=== PATIENT | male | born 1955 | race Caucasian/White ===

== ENCOUNTER 2019-10-29 14:12 | Inpatient (IN) | payer MEDICARE ==
[~2019-10-29] VITALS: Ht 170.2 cm; Wt 73.2 kg
[2019-10-29 14:47] LABS: BASOPHILS % (AUTO) 0.2 % (0.0-5.0); EOSINOPHILS % (AUTO) 0.1 % (0.0-8.0); HEMATOCRIT 44.3 % (42-54); MEAN CORPUSCULAR HEMOGLOBIN 31.1 pg (27.0-33.0); MEAN CORPUSCULAR HGB CONC 35.2 g/dL (32.0-36.0); MEAN CORPUSCULAR VOLUME 88.4 fL (79-99); MONOCYTES % (AUTO) 2.7 % (3.0-13.0); NEUTROPHILS % (AUTO) 95.7 % (40.0-77.0); PLATELET COUNT (AUTO) 366 K/uL (130-400); RED BLOOD CELL COUNT(AUTO) 5.01 MIL/uL (4.50-6.20); WHITE BLOOD COUNT (AUTO) 17.3 K/uL (4.8-10.8)
[2019-10-29 14:58] LABS: POTASSIUM 3.3 mmol/L (3.5-5.1)
[2019-10-29 15:09] LABS: BILIRUBIN,TOTAL 1.8 mg/dL (0.2-1.0); TOTAL PROTEIN, SERUM 8.6 g/dL (6.0-8.3)
[2019-10-29] MEDS ORDERED: ONDANSETRON HCL 4 MG/2 ML VIAL ONE ×2 (15:13→15:33)
[2019-10-29] MEDS ORDERED: MORPHINE SULFATE 4 MG/1ML SYG ONE ×2 (15:14→15:33)
[2019-10-29] MEDS ORDERED: SODIUM CHLORIDE 0.9% 1000ML 1,000 ML IV ONE ×2 (15:14→17:56)
[2019-10-29 16:14] LABS: BILIRUBIN,URINE Negative (NEGATIVE); COLOR,URINE Yellow (YELLOW); GLUCOSE, URINE (UA) Negative (NEGATIVE); KETONES,URINE Negative (NEGATIVE); LEUKOCYTE ESTERASE ,URINE Negative (NEGATIVE); NITRATE,URINE Negative (NEGATIVE); OCCULT BLOOD,URINE Negative (NEGATIVE); PH,URINE >=9.0 (5.0-8.0); PROTEIN,URINE Negative (NEGATIVE)
[2019-10-29 16:16] LABS: APPEARANCE,URINE SLIGHTLY CLOUDY (CLEAR)
[2019-10-29 16:37] LABS: AMORPHOUS SEDIMENT,UR Few /LPF (None Seen); BACTERIA,URINE None Seen /HPF (None Seen); RBC,URINE None Seen /HPF (0-1); SQUAMOUS EPITHELIAL CELL,UR Rare /HPF (0-2); WBC,URINE None Seen /HPF (0-1)
[2019-10-29] MEDS ORDERED: METRONIDAZOLE 500MG/100ML BAG 100 ML ONE (16:42)
[2019-10-29 17:46] LABS: ABG BASE EXCESS -3.4 mmol/L (-2.0-3.0); ABG OXYGEN SATURATION 99.2 % (95.0-99.0); ABG PCO2 19 mmHg (35-48)
[2019-10-29] MEDS: SODIUM CHLORIDE 0.9% 1000ML 1,000 ML IV SCH (17:48)
[2019-10-29] MEDS ORDERED: LEVOFLOXACIN 750 MG/D5W 150 ML 150 ML ONE (17:57)
[2019-10-29] MEDS ORDERED: LACTULOSE 20 GM/30 ML UDCUP PO PRN (18:00)
[2019-10-29] MEDS ORDERED: GUAIFENESIN-DM 200/20 MG 10 ML PO PRN (18:00)
[2019-10-29] MEDS ORDERED: MORPHINE SULFATE 2 MG/ML 1ML SYG IV PRN (18:00)
[2019-10-29] MEDS: METRONIDAZOLE 500MG/100ML BAG 100 ML IV SCH (18:00)
[2019-10-29] MEDS ORDERED: ONDANSETRON HCL 4 MG/2 ML VIAL IV PRN (18:00)
[2019-10-29 18:26] LABS: HEMOGLOBIN A1C 5.5 % (4.0-6.0)
[2019-10-29] MEDS ORDERED: GADODIAMIDE 10 MMOL/20 ML VIAL IV ONE (18:48)
[2019-10-29] MEDS: ZOSYN 3.375GM+NS 50ML 50 ML IV SCH (21:00)
[2019-10-29 21:34] VITALS: BP 151/85
[2019-10-29] MEDS: FAMOTIDINE/PF 20 MG/2 ML VIAL IV SCH (22:16)
[2019-10-29 23:10] VITALS: BP 154/94
[2019-10-30] MEDS: ACETAMINOPHEN 325 MG TAB PO PRN ×2 (00:09→07:58)
[2019-10-30] MEDS: SODIUM CHLORIDE 0.9% 1000ML 1,000 ML IV SCH ×3 (03:18→23:51)
[2019-10-30] MEDS: METRONIDAZOLE 500MG/100ML BAG 100 ML IV SCH ×2 (03:18→10:07)
[2019-10-30 03:40] VITALS: BP 168/96
[2019-10-30] MEDS: ZOSYN 3.375GM+NS 50ML 50 ML IV SCH ×3 (05:00→20:31)
[2019-10-30 06:50] LABS: BASOPHILS % (AUTO) 0.2 % (0.0-5.0); EOSINOPHILS % (AUTO) 0.6 % (0.0-8.0); HEMATOCRIT 41.8 % (42-54); LYMPHOCYTES % (AUTO) 1.7 % (21.0-51.0); MEAN CORPUSCULAR HEMOGLOBIN 29.5 pg (27.0-33.0); MEAN CORPUSCULAR HGB CONC 33.5 g/dL (32.0-36.0); NEUTROPHILS % (AUTO) 90.9 % (40.0-77.0); PLATELET COUNT (AUTO) 318 K/uL (130-400); RED BLOOD CELL COUNT(AUTO) 4.75 MIL/uL (4.50-6.20); RED CELL DISTRIBUTION WIDTH 14.3 % (11.0-15.5); WHITE BLOOD COUNT (AUTO) 17.8 K/uL (4.8-10.8)
[2019-10-30 07:10] LABS: ALBUMIN 3.1 g/dL (3.5-5.0); BILIRUBIN,TOTAL 3.6 mg/dL (0.2-1.0); POTASSIUM 4.1 mmol/L (3.5-5.1); TOTAL PROTEIN, SERUM 7.4 g/dL (6.0-8.3)
[2019-10-30 07:30] VITALS: BP 155/98
[2019-10-30 07:43] LABS: CRP QUANTITATIVE 150.4 mg/L (0.00-9.0)
[2019-10-30] MEDS: FAMOTIDINE/PF 20 MG/2 ML VIAL IV SCH ×2 (07:58→20:31)
[2019-10-30] MEDS: ENOXAPARIN SODIUM 30 MG/0.3 ML SQ SCH (07:59)
[2019-10-30] MEDS ORDERED: MIRT7.5T11 PO (08:32)
[2019-10-30] MEDS ORDERED: OMEP20CA12 PO (08:32)
[2019-10-30] MEDS ORDERED: PALI819S IM (08:32)
[2019-10-30] MEDS ORDERED: FLUO20CA30 PO (08:32)
[2019-10-30] MEDS ORDERED: BENZ0.5T43 PO (08:32)
[2019-10-30 11:30] VITALS: BP 134/70
--- NOTE | 2019-10-30 14:20 | NUR ---
DR. MERISSA CRAVEN AT BEDSIDE,STATED TO NOTIFY HER ONCE ERCP IS COMPLETED.
--- NOTE | 2019-10-30 15:24 | NUR ---
1330 BELONGING 1 PHONE CHARGE DELIVERED TO HIM AND 1 HOUSE NICHOLSON ON A BLUE STRING REMOVED FROM HIS BELONGINGS AND TURN IN TO [facility] HIS PASTORS PER HIS APPROVAL BY Millie MEZA RN HS
[2019-10-30 15:30] VITALS: BP 161/95
--- NOTE | 2019-10-30 16:18 | NUR ---
CM NOTE cm attempted phone call to patient's room. No answer. CM then attempted call to patient's cell number [phone]. No answer, unable to leave message. CM left phone number with nurse for patient to call CM back. CM to f/u.
[2019-10-30 19:40] VITALS: BP 145/86
[2019-10-30] MEDS ORDERED: ACETAMINOPHEN 325 MG TAB PO PRN (20:45)
[2019-10-30 23:39] VITALS: BP 156/95
[2019-10-31 03:35] VITALS: BP 150/95
[2019-10-31] MEDS: ZOSYN 3.375GM+NS 50ML 50 ML IV SCH ×3 (04:16→19:30)
[2019-10-31 05:52] LABS: HEMATOCRIT 38.4 % (42-54); MEAN CORPUSCULAR HEMOGLOBIN 31.2 pg (27.0-33.0); MEAN CORPUSCULAR HGB CONC 35.9 g/dL (32.0-36.0); MEAN CORPUSCULAR VOLUME 86.7 fL (79-99); PLATELET COUNT (AUTO) 277 K/uL (130-400); RED BLOOD CELL COUNT(AUTO) 4.43 MIL/uL (4.50-6.20); RED CELL DISTRIBUTION WIDTH 14.1 % (11.0-15.5); WHITE BLOOD COUNT (AUTO) 13.1 K/uL (4.8-10.8)
[2019-10-31 06:20] LABS: ALBUMIN 2.8 g/dL (3.5-5.0); CREATININE 0.9 mg/dL (0.5-1.5); TOTAL PROTEIN, SERUM 6.9 g/dL (6.0-8.3)
[2019-10-31 06:28] LABS: POTASSIUM 2.6 mmol/L (3.5-5.1)
[2019-10-31] MEDS: LIDOCAINE HCL-MPF 1% 2ML VIAL IV PRN ×2 (06:33→19:32)
[2019-10-31] MEDS: POTASSIUM CHLORIDE 20MEQ/100ML 100 ML IV PRN ×4 (06:33→19:30)
[2019-10-31 07:00] VITALS: BP 174/109
[2019-10-31 07:19] LABS: BAND NEUTROPHILS % (MANUAL) 1 % (0-2); BASOPHILS % (MANUAL) 1 % (0-2); MAN.DIFF COMMENT-IMPRESSION MANUAL DIFFERENTIAL; MONOCYTES % (MANUAL) 6 % (2-9); PLATELET MORPHOLOGY COMMENT ADEQUATE; SEGMENTED NEUTROPHILS % 92 % (40-70)
[2019-10-31] MEDS: FAMOTIDINE/PF 20 MG/2 ML VIAL IV SCH ×2 (08:20→19:30)
[2019-10-31] MEDS: ENOXAPARIN SODIUM 30 MG/0.3 ML SQ SCH (08:20)
[2019-10-31] MEDS ORDERED: HYDROMORPHONE HCL 2 MG/ML VIAL IVP PRN ×2 (08:30)
[2019-10-31] MEDS ORDERED: HYDROMORPHONE 1 MG/1 ML AMP IVP PRN ×2 (08:45)
[2019-10-31] MEDS: POTASSIUM CHLORIDE 20 MEQ in SODIUM CHLORIDE 0.9% 1000ML 1,000 ML IV SCH ×2 (09:29→18:39)
[2019-10-31 11:00] VITALS: BP 142/92
--- NOTE | 2019-10-31 12:48 | NUR ---
CLAUDIA PLAN PATIENT IN COVID UNIT. SPOKE TO PATIENT DAUGHTER. SAID [facility]. PATIENT LIVES ALONE. INDEPENDENT ABLE TO PERFORM ADL'S. NO SERVICES OR DME'S. WANTS DAD TO COME FOR DUE TO COVID FEARS. Addendum: 10/31/19 at 1254 by PIOTR EGAN RN CM Amended: Links added.
[2019-10-31 14:44] LABS: CREATININE 0.8 mg/dL (0.5-1.5); POTASSIUM 3.2 mmol/L (3.5-5.1)
[2019-10-31 16:01] VITALS: BP 141/67
[2019-10-31 19:48] VITALS: BP 142/94
[2019-10-31 23:43] VITALS: BP 140/91
[2019-11-01] MEDS: ZOSYN 3.375GM+NS 50ML 50 ML IV SCH ×3 (03:05→20:22)
[2019-11-01] MEDS: POTASSIUM CHLORIDE 20 MEQ in SODIUM CHLORIDE 0.9% 1000ML 1,000 ML IV SCH ×2 (03:05→12:17)
[2019-11-01 03:52] VITALS: BP 153/96
[2019-11-01 05:37] LABS: BASOPHILS % (AUTO) 0.6 % (0.0-5.0); EOSINOPHILS % (AUTO) 4.8 % (0.0-8.0); HEMATOCRIT 35.4 % (42-54); MEAN CORPUSCULAR HEMOGLOBIN 30.5 pg (27.0-33.0); MEAN CORPUSCULAR HGB CONC 35.3 g/dL (32.0-36.0); MEAN CORPUSCULAR VOLUME 86.3 fL (79-99); MONOCYTES % (AUTO) 12.8 % (3.0-13.0); NEUTROPHILS % (AUTO) 71.3 % (40.0-77.0); PLATELET COUNT (AUTO) 222 K/uL (130-400); RED CELL DISTRIBUTION WIDTH 14.6 % (11.0-15.5); WHITE BLOOD COUNT (AUTO) 6.4 K/uL (4.8-10.8)
[2019-11-01 06:32] LABS: ALBUMIN 2.3 g/dL (3.5-5.0); CREATININE 0.9 mg/dL (0.5-1.5); MAGNESIUM 1.6 mg/dL (1.80-2.40); PHOSPHORUS 0.9 mg/dL (2.5-4.9); POTASSIUM 3.5 mmol/L (3.5-5.1)
[2019-11-01 07:00] VITALS: BP 151/104
[2019-11-01] MEDS: FAMOTIDINE/PF 20 MG/2 ML VIAL IV SCH ×2 (08:54→20:23)
[2019-11-01] MEDS: ENOXAPARIN SODIUM 30 MG/0.3 ML SQ SCH (08:55)
[2019-11-01 11:00] VITALS: BP 158/111
[2019-11-01] MEDS ORDERED: MAGNESIUM 4GM PREMIX 100ML 100 ML IV PRN (11:15)
[2019-11-01] MEDS ORDERED: KETOROLAC TROMETHAMINE 30MG/ML IV PRN (11:30)
[2019-11-01] MEDS: METOPROLOL TARTRATE 1 MG/ML 5ML VIAL IV SCH ×3 (12:11→20:24)
[2019-11-01] MEDS: NEUTRA-PHOS PACKET 1 EACH PO SCH ×3 (12:13→20:27)
[2019-11-01 16:00] VITALS: BP 151/101
[2019-11-01 20:59] VITALS: BP 148/101
[2019-11-02] VITALS (7 sets, daily range): BP systolic 142–175; BP diastolic 86–108
[2019-11-02] MEDS: POTASSIUM CHLORIDE 20 MEQ in SODIUM CHLORIDE 0.9% 1000ML 1,000 ML IV SCH ×3 (00:13→22:34)
--- NOTE | 2019-11-02 00:14 | NUR ---
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 informed of negative results. no new orders given.
[2019-11-02 04:44] LABS: BASOPHILS % (AUTO) 0.5 % (0.0-5.0); HEMATOCRIT 35.1 % (42-54); LYMPHOCYTES % (AUTO) 16.4 % (21.0-51.0); MEAN CORPUSCULAR HEMOGLOBIN 30.1 pg (27.0-33.0); MONOCYTES % (AUTO) 13.4 % (3.0-13.0); NEUTROPHILS % (AUTO) 60.2 % (40.0-77.0); PLATELET COUNT (AUTO) 261 K/uL (130-400); RED BLOOD CELL COUNT(AUTO) 4.08 MIL/uL (4.50-6.20); RED CELL DISTRIBUTION WIDTH 14.6 % (11.0-15.5); WHITE BLOOD COUNT (AUTO) 5.5 K/uL (4.8-10.8)
[2019-11-02 05:01] LABS: ALBUMIN 2.5 g/dL (3.5-5.0); BILIRUBIN,TOTAL 1.6 mg/dL (0.2-1.0); CREATININE 0.8 mg/dL (0.5-1.5); MAGNESIUM 2.4 mg/dL (1.80-2.40); PHOSPHORUS 1.9 mg/dL (2.5-4.9); POTASSIUM 3.2 mmol/L (3.5-5.1); TOTAL PROTEIN, SERUM 6.4 g/dL (6.0-8.3)
[2019-11-02] MEDS: ZOSYN 3.375GM+NS 50ML 50 ML IV SCH ×3 (05:43→21:03)
[2019-11-02] MEDS: METOPROLOL TARTRATE 1 MG/ML 5ML VIAL IV SCH ×4 (05:44→23:51)
--- NOTE | 2019-11-02 06:19 | NUR ---
MD UPDATE 0600: MD CHU CALLED UNIT. SPOKE WITH PRIMARY NURSE, SARIAH CASTRO RN. NURSE NOTIFIED MD OF MORNING LABS AND NEGATIVE COVID 19 TEST RESULTS. STATED NO PROCEDURE TO BE SCHEDULED UNTIL 2 NEGATIVE COVID19 TEST RESULTS. ORDERS CMP, PT-INR AND PTT FOR 11/03/19. ORDERS READ BACK AND ENTERED INTO SYSTEM.
[2019-11-02] MEDS: NEUTRA-PHOS PACKET 1 EACH PO SCH ×3 (08:37→17:37)
[2019-11-02] MEDS: FAMOTIDINE/PF 20 MG/2 ML VIAL IV SCH ×2 (08:37→21:03)
[2019-11-02] MEDS: ENOXAPARIN SODIUM 30 MG/0.3 ML SQ SCH (08:38)
--- NOTE | 2019-11-02 10:48 | NUR ---
DR. VLAD BOLAÑOS PENDING CALL BACK SPOKE WITH OFFICE STAFF.
--- NOTE | 2019-11-02 12:34 | NUR ---
UPDATED FAMILY CONTACTS CALL TO FRIEND GENE IN CHART- NUMBER OBTAINED FOR DAUGHTER SALLIE, CALLED AND UPDATED- STATES WILL BE ARRIVING TOMORROW- FACE SHEET UPDATED, DCP IS STILL HOME
[2019-11-02 14:53] LABS: INR 1.06 (0.85-1.15); PROTHROMBIN TIME 11.4 SEC (9.6-11.6)
--- NOTE | 2019-11-02 15:45 | NUR ---
PT TRANSFERRED TO 3RD FLOOR ROOM 312 REPORT GIVEN TO BRANDO SLATER. PT IN NO DISTRESS, NO SOB. 20G IV INTACT TO SUJEY AC.
--- NOTE | 2019-11-02 17:01 | NUR ---
DR CHU CALLED BACK. STATED THAT HE WILL SEE PATIENT LATER TODAY. HE'S DOING SX RIGHT NOW.
--- NOTE | 2019-11-02 17:02 | NUR ---
DR CHU, POSSIBLE ERCP TOMORROW. NO ORDERS YET. DR CHU WILL SEE PATIENT LATER TODAY.
[2019-11-02] MEDS: POTASSIUM CHLORIDE 20MEQ/100ML 100 ML IV PRN ×2 (21:03→23:53)
[2019-11-02] MEDS: LIDOCAINE HCL-MPF 1% 2ML VIAL IV PRN ×2 (21:03→23:52)
[2019-11-02] MEDS: BENZTROPINE MESYLATE 0.5 MG TAB PO SCH (21:04)
[2019-11-03] VITALS (27 sets, daily range): BP systolic 98–173; BP diastolic 66–115
[2019-11-03 03:56] LABS: HEMATOCRIT 37.1 % (42-54); MEAN CORPUSCULAR HEMOGLOBIN 30.4 pg (27.0-33.0); MEAN CORPUSCULAR HGB CONC 35.6 g/dL (32.0-36.0); MEAN CORPUSCULAR VOLUME 85.5 fL (79-99); PLATELET COUNT (AUTO) 263 K/uL (130-400); RED BLOOD CELL COUNT(AUTO) 4.34 MIL/uL (4.50-6.20); RED CELL DISTRIBUTION WIDTH 14.3 % (11.0-15.5); WHITE BLOOD COUNT (AUTO) 6.6 K/uL (4.8-10.8)
[2019-11-03 04:05] LABS: INR 1.06 (0.85-1.15); PARTIAL THROMBOPLASTIN TIME 30.3 SEC (26.3-35.5); PROTHROMBIN TIME 11.4 SEC (9.6-11.6)
[2019-11-03 04:24] LABS: ALBUMIN 2.7 g/dL (3.5-5.0); BILIRUBIN,TOTAL 1.5 mg/dL (0.2-1.0); CREATININE 0.8 mg/dL (0.5-1.5); PHOSPHORUS 2.3 mg/dL (2.5-4.9); POTASSIUM 3.9 mmol/L (3.5-5.1); TOTAL PROTEIN, SERUM 6.8 g/dL (6.0-8.3)
[2019-11-03 04:28] LABS: BAND NEUTROPHILS % (MANUAL) 1 % (0-2); EOSINOPHILS % (MANUAL) 3 % (1-6); LYMPHOCYTES % (MANUAL) 20 % (22-44); MAN.DIFF COMMENT-IMPRESSION MANUAL DIFFERENTIAL; MONOCYTES % (MANUAL) 10 % (2-9); SEGMENTED NEUTROPHILS % 66 % (40-70)
[2019-11-03 04:30] LABS: PLATELET MORPHOLOGY COMMENT ADEQUATE
[2019-11-03] MEDS: ZOSYN 3.375GM+NS 50ML 50 ML IV SCH ×3 (05:07→21:47)
[2019-11-03] MEDS: METOPROLOL TARTRATE 1 MG/ML 5ML VIAL IV SCH ×4 (05:29→21:47)
[2019-11-03] MEDS: POTASSIUM CHLORIDE 20 MEQ in SODIUM CHLORIDE 0.9% 1000ML 1,000 ML IV SCH ×2 (06:38→17:50)
[2019-11-03] MEDS: ENOXAPARIN SODIUM 30 MG/0.3 ML SQ SCH (09:00)
[2019-11-03] MEDS: BENZTROPINE MESYLATE 0.5 MG TAB PO SCH ×2 (10:48→21:47)
[2019-11-03] MEDS: FLUOXETINE HCL 20 MG CAPSULE PO SCH (10:49)
[2019-11-03] MEDS: MIRTAZAPINE 15 MG TABLET PO SCH (10:49)
[2019-11-03] MEDS: FAMOTIDINE/PF 20 MG/2 ML VIAL IV SCH ×2 (10:49→21:47)
[2019-11-03] MEDS ORDERED: IOHEXOL-350 50ML VIAL IV ONE (14:02)
[2019-11-03] MEDS ORDERED: PROPOFOL 10 MG/ML 20ML VIAL IV ONE ×2 (14:48→14:49)
[2019-11-03] MEDS ORDERED: SUCCINYLCHOLINE 200MG/10ML SYR ONE (14:49)
[2019-11-03] MEDS ORDERED: LIDOCAINE HCL 2% 20ML ONE (14:50)
[2019-11-03] MEDS: INDOMETHACIN 50 MG SUPP.RECT RC SCH (16:10)
--- NOTE | 2019-11-03 18:14 | NUR ---
PAGED DR. NELSON REGARDING ERCP RESULTS. PENDING CALL BACK
--- NOTE | 2019-11-03 18:19 | NUR ---
SPOKE TO DR. NELSON NEW ORDER OBTAIN CONSENT FOR LAP SHRUTI POSSIBLE OPEN FOR TOMORROW 12PM. PER DR. NELSON SHE ALREADY SPOKE TO PATIENT REGARDING SURGERY.
[2019-11-04] VITALS (24 sets, daily range): BP systolic 138–170; BP diastolic 72–99
[2019-11-04] MEDS: ZOSYN 3.375GM+NS 50ML 50 ML IV SCH ×4 (04:35→21:43)
[2019-11-04] MEDS: METOPROLOL TARTRATE 1 MG/ML 5ML VIAL IV SCH ×4 (04:35→23:35)
[2019-11-04 05:46] LABS: BASOPHILS % (AUTO) 0.7 % (0.0-5.0); EOSINOPHILS % (AUTO) 7.9 % (0.0-8.0); HEMATOCRIT 36.3 % (42-54); MEAN CORPUSCULAR HEMOGLOBIN 30.4 pg (27.0-33.0); MEAN CORPUSCULAR HGB CONC 33.9 g/dL (32.0-36.0); MEAN CORPUSCULAR VOLUME 89.6 fL (79-99); MONOCYTES % (AUTO) 12.8 % (3.0-13.0); NEUTROPHILS % (AUTO) 57.6 % (40.0-77.0); PLATELET COUNT (AUTO) 235 K/uL (130-400); RED BLOOD CELL COUNT(AUTO) 4.05 MIL/uL (4.50-6.20); RED CELL DISTRIBUTION WIDTH 14.8 % (11.0-15.5)
[2019-11-04 06:01] LABS: ALBUMIN 2.5 g/dL (3.5-5.0); BILIRUBIN,DIRECT 0.5 mg/dL (0.0-0.3); BILIRUBIN,TOTAL 1.3 mg/dL (0.2-1.0); CREATININE 0.7 mg/dL (0.5-1.5); POTASSIUM 4.7 mmol/L (3.5-5.1); TOTAL PROTEIN, SERUM 6.6 g/dL (6.0-8.3)
[2019-11-04] MEDS: BENZTROPINE MESYLATE 0.5 MG TAB PO SCH ×2 (09:00→21:42)
[2019-11-04] MEDS: ENOXAPARIN SODIUM 30 MG/0.3 ML SQ SCH (09:00)
[2019-11-04] MEDS: FLUOXETINE HCL 20 MG CAPSULE PO SCH (09:00)
[2019-11-04] MEDS: MIRTAZAPINE 15 MG TABLET PO SCH (09:00)
--- NOTE | 2019-11-04 09:41 | NUR ---
i assumed pt's care at 0900, when in went into room to introduce myself, pt was eating a clear liquid breakfast; he is supposed to be npo for surgey this am; no sign was on door, i instructed him to stop eating and i would get back to him in regards to if surgery was going to be canceled or not; i have called surgery and informed them and pending them to call me back
--- NOTE | 2019-11-04 09:44 | NUR ---
i just received a call back from surgery and they said the surgery would procede at 1200.
[2019-11-04] MEDS: FAMOTIDINE/PF 20 MG/2 ML VIAL IV SCH ×2 (09:50→21:43)
[2019-11-04] MEDS ORDERED: MIDAZOLAM HCL 1 MG/ML 2ML VIAL ONE (11:37)
[2019-11-04] MEDS ORDERED: ROCURONIUM 10MG/1ML SYR 10 MG/ML ML ONE (11:38)
[2019-11-04] MEDS ORDERED: FENTANYL CITRATE PF 50 MCG/1 ML 2ML VIAL ONE (11:38)
[2019-11-04] MEDS ORDERED: BUPIVACAINE/PF 0.5% 30ML VIAL ONE (11:46)
--- NOTE | 2019-11-04 12:29 | NUR ---
CM Note: Solara pending set up CM went to meet w/pt in room. Pt currently in OR for karol munoz w/Dr Alonzo. Unable to obtain consent currently for Solara. Primary nurse aware. Will try again after. CM to cont to follow up.
[2019-11-04] MEDS: POTASSIUM CHLORIDE 20 MEQ in SODIUM CHLORIDE 0.9% 1000ML 1,000 ML IV SCH ×3 (13:05→21:44)
[2019-11-04] MEDS ORDERED: MEPERIDINE-PF 25 MG/ML SYG ONE (14:17)
--- NOTE | 2019-11-04 15:28 | NUR ---
RD SCREEN X 6 DAYS Pt admitted with Enlarged Fatty Liver. Pt with cholangitis, choledocholithiasis as per EMR. NPO vs Clear Liquid diet X 6 days. Pending Lap Acacia. Post procedure, Recommend advance diet as tolerated to GI Soft/Low Fat Diet order as medically feasible RD to follow up with nutrition education. RD to continue to monitor. Please notify as additional nutrition concerns arise. Thank you. Addendum: 11/04/19 at [address] Amended: Links added.
--- NOTE | 2019-11-04 15:39 | NUR ---
cm note met with patient and discussed orders for Solara, for IV antibiotic therapy need. answered questions regarding facility. and states that he does not want to sign for referral at this time. states wishes to think about it first and wishes to speak to Md regarding his pain still present, and then decide. informed pt CM would be following up with him for decision on ltach. pt verbalizes understanding.
[2019-11-04] MEDS ORDERED: HYDRALAZINE HCL 20 MG/ML VIAL IV PRN (18:30)
[2019-11-05 00:28] VITALS: BP 164/96
[2019-11-05 04:32] VITALS: BP 153/92
[2019-11-05] MEDS: ZOSYN 3.375GM+NS 50ML 50 ML IV SCH ×3 (04:51→21:00)
[2019-11-05] MEDS: METOPROLOL TARTRATE 1 MG/ML 5ML VIAL IV SCH ×4 (05:18→20:59)
[2019-11-05 05:27] LABS: BASOPHILS % (AUTO) 0.2 % (0.0-5.0); EOSINOPHILS % (AUTO) 0.1 % (0.0-8.0); HEMATOCRIT 35.1 % (42-54); LYMPHOCYTES % (AUTO) 10.1 % (21.0-51.0); MEAN CORPUSCULAR HEMOGLOBIN 30.1 pg (27.0-33.0); MEAN CORPUSCULAR HGB CONC 34.2 g/dL (32.0-36.0); MONOCYTES % (AUTO) 9.3 % (3.0-13.0); NEUTROPHILS % (AUTO) 79.4 % (40.0-77.0); PLATELET COUNT (AUTO) 319 K/uL (130-400); RED BLOOD CELL COUNT(AUTO) 3.99 MIL/uL (4.50-6.20); RED CELL DISTRIBUTION WIDTH 14.5 % (11.0-15.5); WHITE BLOOD COUNT (AUTO) 10.2 K/uL (4.8-10.8)
[2019-11-05 05:46] LABS: ALBUMIN 2.9 g/dL (3.5-5.0); BILIRUBIN,DIRECT 0.6 mg/dL (0.0-0.3); TOTAL PROTEIN, SERUM 7.1 g/dL (6.0-8.3)
[2019-11-05 08:00] VITALS: BP 139/94
--- NOTE | 2019-11-05 08:00 | NUR ---
AM SHIFT ASSESSMENT.
[2019-11-05] MEDS: POTASSIUM CHLORIDE 20 MEQ in SODIUM CHLORIDE 0.9% 1000ML 1,000 ML IV SCH ×2 (09:17→20:58)
[2019-11-05] MEDS: MIRTAZAPINE 15 MG TABLET PO SCH (10:01)
[2019-11-05] MEDS: FAMOTIDINE/PF 20 MG/2 ML VIAL IV SCH (10:01)
[2019-11-05] MEDS: FLUOXETINE HCL 20 MG CAPSULE PO SCH (10:01)
[2019-11-05] MEDS: BENZTROPINE MESYLATE 0.5 MG TAB PO SCH ×2 (10:02→21:00)
[2019-11-05 11:47] VITALS: BP 150/88
[2019-11-05] MEDS: AMLODIPINE BESYLATE 5 MG TAB PO SCH (15:39)
[2019-11-05 16:00] VITALS: BP 156/74
--- NOTE | 2019-11-05 16:08 | NUR ---
DRESSING TO SM SURG.WOUND AT UMBILICAL AREA CHANGED, SATURATED WITH BLOOD. SM CONTINUOS LEAK NOTED. NOTIFIED DR. NELSON.
--- NOTE | 2019-11-05 17:00 | NUR ---
QUICK STOP DRESSING APPLIED TO AREA WHERE LEAK WAS, PRESSURE APPLIED AND SEEMS LIKE BLEEDING HAS STOPPED.. WILL CONTINUE TO MONITOR.
[2019-11-05 19:50] VITALS: BP 162/97
[2019-11-05] MEDS: FAMOTIDINE 20MG TAB 20 MG TAB PO SCH (21:00)
--- NOTE | 2019-11-05 23:45 | NUR ---
LEAKING ABD PUNCTURE WOUND POST LAP SHRUTI Pt resting in bed on rounds and noted the gown with blood stain , pressure dressing applied by the previous shift is wet with serosanguinous drainage. Dressing taken off, site cleansed with saline, no leaking noted. Dressing was dry at 2000on rounds. Went ahead and changed the dressing, used 4x4's and secured the dressing with the elastoplast tape to secure the dressing in place. Pt's gown changed, vital signs stable, normotensive. Will continue to monitor. No complaints of pain on the operative site, no nausea nor vomiting, tolerating po intake well.
[2019-11-06] VITALS (7 sets, daily range): BP systolic 105–154; BP diastolic 79–94
[2019-11-06] MEDS: ZOSYN 3.375GM+NS 50ML 50 ML IV SCH ×3 (05:21→20:11)
[2019-11-06 05:22] LABS: BASOPHILS % (AUTO) 0.5 % (0.0-5.0); EOSINOPHILS % (AUTO) 3.6 % (0.0-8.0); HEMATOCRIT 31.9 % (42-54); LYMPHOCYTES % (AUTO) 14.1 % (21.0-51.0); MEAN CORPUSCULAR HEMOGLOBIN 29.7 pg (27.0-33.0); MEAN CORPUSCULAR HGB CONC 33.9 g/dL (32.0-36.0); MEAN CORPUSCULAR VOLUME 87.6 fL (79-99); MONOCYTES % (AUTO) 12.2 % (3.0-13.0); NEUTROPHILS % (AUTO) 68.7 % (40.0-77.0); PLATELET COUNT (AUTO) 311 K/uL (130-400); RED BLOOD CELL COUNT(AUTO) 3.64 MIL/uL (4.50-6.20); RED CELL DISTRIBUTION WIDTH 14.6 % (11.0-15.5); WHITE BLOOD COUNT (AUTO) 8.5 K/uL (4.8-10.8)
[2019-11-06] MEDS: POTASSIUM CHLORIDE 20 MEQ in SODIUM CHLORIDE 0.9% 1000ML 1,000 ML IV SCH ×2 (05:27→20:12)
[2019-11-06] MEDS: METOPROLOL TARTRATE 1 MG/ML 5ML VIAL IV SCH ×4 (05:28→23:56)
[2019-11-06 05:40] LABS: ALBUMIN 2.7 g/dL (3.5-5.0); BILIRUBIN,TOTAL 0.9 mg/dL (0.2-1.0); CREATININE 0.9 mg/dL (0.5-1.5); POTASSIUM 3.3 mmol/L (3.5-5.1); TOTAL PROTEIN, SERUM 6.6 g/dL (6.0-8.3)
--- NOTE | 2019-11-06 07:00 | NUR ---
PATIENT UPDATE Pt slept well overnight, blood pressure more stable this am. No complaints of any discomfort. Pressure dressing in the abdomen dry and intact, no drainage noted, pt happy about the status of the dressing. Still without any complaints of any discomfort, ambulating freely inside the room. Was given lactulose last night bec of last bm at 5/5, with good bowel movement this am. Talked to the daughter on the phone 3x last night, stated that she's interested to talk with md's this am and that she will ask permission from the executive housekeeper for the opportunity to visit. Stated that she doesn't agree about the plan to discharge pt to a SNF and stated that she's got enough help to help her take care of her Dad at home.
[2019-11-06] MEDS ORDERED: POTASSIUM CHLORIDE 20MEQ/100ML 100 ML IV PRN (08:00)
[2019-11-06] MEDS ORDERED: LIDOCAINE HCL-MPF 1% 2ML VIAL IV PRN (08:00)
[2019-11-06] MEDS ORDERED: POTASSIUM CHLORIDE 10% ELIXIR 20 MEQ/15 ML UDCUP PO PRN (08:00)
[2019-11-06] MEDS ORDERED: POTASSIUM CHLORIDE 20 MEQ ERTAB PO ONE (08:04)
[2019-11-06] MEDS: MIRTAZAPINE 15 MG TABLET PO SCH (08:24)
[2019-11-06] MEDS: FLUOXETINE HCL 20 MG CAPSULE PO SCH (08:24)
[2019-11-06] MEDS: FAMOTIDINE 20MG TAB 20 MG TAB PO SCH ×2 (08:24→20:11)
[2019-11-06] MEDS: BENZTROPINE MESYLATE 0.5 MG TAB PO SCH ×2 (08:25→20:11)
[2019-11-06] MEDS: AMLODIPINE BESYLATE 5 MG TAB PO SCH (08:25)
[2019-11-06] MEDS: POTASSIUM CHLORIDE 20 MEQ ERTAB PO PRN ×2 (16:56→20:20)
--- NOTE | 2019-11-06 17:01 | NUR ---
PT'S POTTASIUM LEVEL 3.3 TODAY, I HAVE GIVEN A TOTAL OF 40 MEQ PO KCL PER PROTOCOL FOR COVERAGE.
[2019-11-07] MEDS: POTASSIUM CHLORIDE 20 MEQ in SODIUM CHLORIDE 0.9% 1000ML 1,000 ML IV SCH ×2 (01:03→12:36)
[2019-11-07 04:22] VITALS: BP 123/81
[2019-11-07] MEDS: ZOSYN 3.375GM+NS 50ML 50 ML IV SCH ×3 (04:28→21:47)
[2019-11-07] MEDS: METOPROLOL TARTRATE 1 MG/ML 5ML VIAL IV SCH (05:26)
[2019-11-07 05:50] LABS: INR 0.99 (0.85-1.15); PROTHROMBIN TIME 10.7 SEC (9.6-11.6)
[2019-11-07 05:52] LABS: CREATININE 0.9 mg/dL (0.5-1.5); POTASSIUM 4.2 mmol/L (3.5-5.1)
[2019-11-07 08:25] VITALS: BP 157/76
[2019-11-07] MEDS: MIRTAZAPINE 15 MG TABLET PO SCH (09:29)
[2019-11-07] MEDS: FAMOTIDINE 20MG TAB 20 MG TAB PO SCH ×2 (09:29→21:47)
[2019-11-07] MEDS: FLUOXETINE HCL 20 MG CAPSULE PO SCH (09:30)
[2019-11-07] MEDS: AMLODIPINE BESYLATE 5 MG TAB PO SCH (09:30)
[2019-11-07] MEDS: BENZTROPINE MESYLATE 0.5 MG TAB PO SCH ×2 (09:30→21:47)
[2019-11-07 11:00] VITALS: BP 142/87
[2019-11-07] MEDS ORDERED: METOPROLOL TARTRATE 25 MG TAB ONE (12:18)
[2019-11-07] MEDS: METOPROLOL TARTRATE 25 MG TAB PO SCH ×2 (12:34→21:48)
[2019-11-07 16:00] VITALS: BP 123/76
[2019-11-07 20:45] VITALS: BP 139/87
[2019-11-07] MEDS ORDERED: MIRTAZAPINE 15 MG TABLET PO SCH (21:00)
[2019-11-07 23:32] VITALS: BP 136/86
[2019-11-08] MEDS: POTASSIUM CHLORIDE 20 MEQ in SODIUM CHLORIDE 0.9% 1000ML 1,000 ML IV SCH ×2 (01:59→09:04)
[2019-11-08 03:15] VITALS: BP 148/93
[2019-11-08] MEDS: ZOSYN 3.375GM+NS 50ML 50 ML IV SCH ×2 (05:24→12:42)
[2019-11-08 06:08] LABS: BASOPHILS % (AUTO) 0.6 % (0.0-5.0); EOSINOPHILS % (AUTO) 4.5 % (0.0-8.0); HEMATOCRIT 33.5 % (42-54); LYMPHOCYTES % (AUTO) 16.6 % (21.0-51.0); MEAN CORPUSCULAR HEMOGLOBIN 30.4 pg (27.0-33.0); MEAN CORPUSCULAR HGB CONC 33.7 g/dL (32.0-36.0); MEAN CORPUSCULAR VOLUME 90.1 fL (79-99); MONOCYTES % (AUTO) 9.7 % (3.0-13.0); PLATELET COUNT (AUTO) 370 K/uL (130-400); RED BLOOD CELL COUNT(AUTO) 3.72 MIL/uL (4.50-6.20); RED CELL DISTRIBUTION WIDTH 15.4 % (11.0-15.5); WHITE BLOOD COUNT (AUTO) 8.3 K/uL (4.8-10.8)
[2019-11-08 06:38] LABS: ALBUMIN 2.9 g/dL (3.5-5.0); BILIRUBIN,TOTAL 0.7 mg/dL (0.2-1.0); CREATININE 0.8 mg/dL (0.5-1.5); POTASSIUM 3.8 mmol/L (3.5-5.1); TOTAL PROTEIN, SERUM 7.2 g/dL (6.0-8.3)
[2019-11-08 07:00] VITALS: BP 150/89
[2019-11-08] MEDS: FLUOXETINE HCL 20 MG CAPSULE PO SCH (09:03)
[2019-11-08] MEDS: BENZTROPINE MESYLATE 0.5 MG TAB PO SCH (09:03)
[2019-11-08] MEDS: FAMOTIDINE 20MG TAB 20 MG TAB PO SCH (09:03)
[2019-11-08] MEDS: AMLODIPINE BESYLATE 5 MG TAB PO SCH (09:04)
[2019-11-08] MEDS: METOPROLOL TARTRATE 25 MG TAB PO SCH (09:04)
[2019-11-08 11:00] VITALS: BP 114/75
--- NOTE | 2019-11-08 11:17 | NUR ---
CM NOTE/[facility] APPROVED PER L[place] AT [facility], PATIENT APPROVED FOR 11/09/2019 AT 1030AM. PRIMARY NURSE, ANDERSON SLATER, MADE AWARE. DAUGHTER CALLED, SALLIE, AND MADE AWARE. PATIENT READY FOR DC HOME TODAY
[2019-11-08 15:00] VITALS: BP 136/77
--- NOTE | 2019-11-08 15:40 | NUR ---
RD FOLLOW UP Pt tolerating Regular, Low fat diet order with no report of GI distress. PO intake at 25% this AM. Pt s/p cholecystectomy, as per EMR. Attempt at nutrition education via phone with no answer. Recommend 30mL ProMod QD Recommend continue Regular, Low Fat diet order Nutrition education left in Pt chart. RD to continue to monitor.Please notify as nutrition concerns arise. Thank you. Addendum: 11/08/19 at [address] RD Amended: Links added.
--- NOTE | 2019-11-08 15:47 | NUR ---
NUTRITION EDUCATION Pt s/p Cholecystectomy. FANY placed Fat Restricted Nutrition Education in Pt chart. Pt with Droplet isolation. Attempt at education via phone with no answer x2. RN notified. Please notify as concerns arise. Addendum: 11/08/19 at [address] RD Amended: Links added.
[2019-11-08] MEDS ORDERED: AMLO5TAB4 PO (16:08)
[2019-11-08] MEDS ORDERED: METO25 PO (16:08)
[2019-11-08] MEDS ORDERED: MIRT15TA PO (16:21)
[2019-11-08] MEDS ORDERED: FLUO20CA35 PO (16:29)
--- NOTE | 2019-11-08 16:30 | NUR ---
NEW PRESCRIPTIONS ERX SENT TO [facility] (PT PREVIOUS PHARMACY). THIS NRUSE CALLED AND SPOKE WITH TECH AT [facility] TO CANCEL PRESCRIPTIONS. PRESECRIPTIONS HAVE BEEN E TRANSMITTED TO [facility] (PT NEW PHARMACY) AND WILL BE READY FOR PHOTOGRAMMETRIC COMPILATION SPECIALIST ONCE PHARMACY OPENS
--- NOTE | 2019-11-08 18:36 | NUR ---
EDUCATION/DISCHARGE EDUCATED GENE (CAREGIVER) ON DC INSTRUCTIONS AND MEDICATIONS WELL PICC LINE CARE. VERBALIZED UNDERSTANDING.
== END 2019-11-08 18:20 | disposition home health service (06) | DRG 854 ==
LOC: EDH 14:12 → EDHIP 17:48 → 2AH 20:10 → 3BH 11-02 15:53
PROVIDERS: ADMIT Family Medicine; ATTEND Family Medicine
PROC: 0FC98ZZ Extirpation of Matter from Common Bile Duct, Via Natural or Artificial Opening Endoscopic (ICD-10-PCS; 2019-11-03)
PROC: BF141ZZ Fluoroscopy of Gallbladder, Bile Ducts and Pancreatic Ducts using Low Osmolar Contrast (ICD-10-PCS; 2019-11-03)
PROC: 0FT44ZZ Resection of Gallbladder, Percutaneous Endoscopic Approach (ICD-10-PCS; principal; 2019-11-05)
PROC: 02HV33Z Insertion of Infusion Device into Superior Vena Cava, Percutaneous Approach (ICD-10-PCS; 2019-11-07)
DX: A41.59 Other Gram-negative sepsis (principal); E87.1 Hypo-osmolality and hyponatremia; K82.1 Hydrops of gallbladder; K80.63 Calculus of gallbladder and bile duct with acute cholecystitis with obstruction; K80.33 Calculus of bile duct with acute cholangitis with obstruction; B96.89 Other specified bacterial agents as the cause of diseases classified elsewhere; E87.6 Hypokalemia; F45.21 Hypochondriasis; B95.2 Enterococcus as the cause of diseases classified elsewhere; K72.90 Hepatic failure, unspecified without coma; E83.42 Hypomagnesemia; E11.9 Type 2 diabetes mellitus without complications; F25.9 Schizoaffective disorder, unspecified; I10 Essential (primary) hypertension; I25.10 Atherosclerotic heart disease of native coronary artery without angina pectoris; K83.8 Other specified diseases of biliary tract; E83.39 Other disorders of phosphorus metabolism; K76.0 Fatty (change of) liver, not elsewhere classified; Z20.828 Contact with and (suspected) exposure to other viral communicable diseases; I25.2 Old myocardial infarction; Z79.899 Other long term (current) drug therapy; Z86.19 Personal history of other infectious and parasitic diseases; Z87.891 Personal history of nicotine dependence; Z80.1 Family history of malignant neoplasm of trachea, bronchus and lung
CPT/HCPCS: 36415; 36600; 43264; 71045; 74176; 74183; 74330; 76705; 80048; 80053; 80076; 81001; 82550; 82728; 82803; 83036; 83605; 83690; 83735; 83880; 84100; 84145; 84484; 85025; 85378; 85610; 85730; 86140; 87040; 87077; 87186; 87633; 87635; 87804; 88304; 93005; A9579; C1769; C1773; C1894; G0378; J0330; J1170; J1650; J1885; J1956; J2175; J2250; J2270; J2405; J2543; J2704; J3010; J3475; J3480; J3490; J7030; J7120; Q9967

== ENCOUNTER → 2023-11-19 | Outpatient (CLI) | payer MEDICARE ==
[~2023-11-19] MED LIST: AMLO5TAB4 PO; BENZ0.5T44 PO; FLUO-418 PO; METO25 PO; MIRT-146 PO; MIRT7.5T11 PO; OMEP20CA12 PO; PALI819S IM
== END | disposition home or self-care (01) ==
LOC: SHCH 14:52
PROVIDERS: ATTEND Internal Medicine
DX: I08.2 Rheumatic disorders of both aortic and tricuspid valves (principal); R55 Syncope and collapse
CPT/HCPCS: 93306